=== PATIENT | female | born 1975 ===

== ENCOUNTER 2020-04-21 07:51 | Day surgery (SDC) | payer OTHER | END 2020-04-21 12:55 | disposition home or self-care (01) | LOC: AMB-ENDOS 07:51 | PROVIDERS: ATTEND Surgery | DX: K62.89 Other specified diseases of anus and rectum (principal); K64.8 Other hemorrhoids; Z12.11 Encounter for screening for malignant neoplasm of colon; Z20.828 Contact with and (suspected) exposure to other viral communicable diseases ==